=== PATIENT | male | born 1975 | race African-American/Black ===

== ENCOUNTER 2016-08-10 18:05 | Emergency (ER) | payer SELFPAY ==
[~2016-08-10] VITALS: Ht 177.8 cm; Wt 70.0 kg
[~2016-08-10 18:05] MED LIST: ALBU18HF2 IH; PHEN100C4 PO
[2016-08-10 19:35] LABS: BASOPHILS % 0.6 % (0.0-2.0); DIFFERENTIAL COMMENT 0; HEMATOCRIT. 39.6 % (42.0-52.0); HEMOGLOBIN. 12.7 g/dL (14.0-18.0); LYMPHOCYTES % 19.1 % (20.0-50.0); MEAN CORPUSCULAR HGB CONC 32.2 g/dL (31.0-37.0); MEAN CORPUSCULAR VOLUME 77.8 fL (80.0-94.0); MEAN PLATELET VOLUME 7.9 fl (7.4-10.4); MONOCYTES % 7.2 % (2.0-8.0); NEUTROPHILS % 70.1 % (40.0-76.0); PLATELET 320 x1000/uL (130-400); RED BLOOD CELL COUNT 5.09 mill/uL (4.7-6.1); RED CELL DISTRIBUTION WIDTH 17.4 % (11.6-14.6); WHITE BLOOD COUNT 6.6 x1000/uL (4.5-11.0)
[2016-08-10 19:37] LABS: CHLORIDE 99 mEq/L (98-107); INDEX HEMOLYSI 1 (1-3); INDEX ICTERIC 1 (1-4); INDEX LIPEMIC 1 (1-3)
[2016-08-10 19:40] LABS: ANION GAP 14; CALCIUM 9.1 mg/dL (8.5-10.1); CARBON DIOXIDE 28 mEq/L (21-32); UREA NITROGEN BLOOD 7 mg/dL (7-21)
[2016-08-10 19:44] LABS: PHENYTOIN 3.7 ug/mL (10-20); eGFR > 60 mL/min (>60)
[2016-08-10 23:30] VITALS: BP 140/80
[2016-08-10] MEDS ORDERED: PHENYTOIN SODIUM 1,000 MG in SODIUM CHLORIDE 0.9% 100 ML IV ONE (23:45)
== END 2016-08-11 02:51 | disposition home or self-care (01) ==
LOC: ER 18:57
DX: G40.909 Epilepsy, unspecified, not intractable, without status epilepticus (principal); J45.909 Unspecified asthma, uncomplicated; I10 Essential (primary) hypertension; R50.9 Fever, unspecified; Z91.14 Patient's other noncompliance with medication regimen
CPT/HCPCS: 36415; 80048; 80185; 85025; 93005; 96365; 96366; 99285; J1165; J7040; Z7610; J7050

== ENCOUNTER 2017-10-23 00:43 | Emergency (ER) | payer MEDICAID ==
[~2017-10-23] VITALS: Ht 177.8 cm; Wt 82.0 kg
[2017-10-23] MEDS ORDERED: PREDNISONE 20MG TABLET PO STA (01:22)
[2017-10-23] MEDS ORDERED: ALBUTEROL (0.083%) 2.5MG/3ML NEB HHN STA (01:22)
[2017-10-23] MEDS ORDERED: IPRATROPIUM BROMIDE (0.02%) 0.5MG/2.5ML NEB HHN STA (01:22)
[2017-10-23 06:17] VITALS: BP 134/79
== END 2017-10-23 06:18 | disposition home or self-care (01) ==
LOC: ER 00:43
DX: J45.901 Unspecified asthma with (acute) exacerbation (principal); S00.03XA Contusion of scalp, initial encounter; F17.200 Nicotine dependence, unspecified, uncomplicated; F12.10 Cannabis abuse, uncomplicated; G40.909 Epilepsy, unspecified, not intractable, without status epilepticus; W19.XXXA Unspecified fall, initial encounter; Y93.9 Activity, unspecified; Y92.89 Other specified places as the place of occurrence of the external cause
CPT/HCPCS: 70450; 71045; 94640; 99284; J7512; J7611

== ENCOUNTER 2017-12-15 12:00 | Emergency (ER) | payer MEDICAID ==
[~2017-12-15] VITALS: Ht 175.3 cm; Wt 85.0 kg
[2017-12-15] MEDS ORDERED: PHENYTOIN SODIUM EXTENDED 100MG CAPSULE PO ONE (12:30)
[2017-12-15] MEDS ORDERED: NALOXONE HCL 0.4 MG/ML 1ML VIAL IV ONE (14:15)
[2017-12-15] MEDS ORDERED: PHENYTOIN SODIUM 100MG/2ML VIAL IV ONE (14:15)
[2017-12-15] MEDS ORDERED: PHENYTOIN SODIUM 1000MG in SODIUM CHLORIDE 0.9% 100ML IV ONE (14:30)
[2017-12-15 14:56] LABS: BASOPHILS % 0.2 % (0.0-2.0); EOSINOPHILS % 2.2 % (0.0-5.0); HEMATOCRIT. 42.7 % (42.0-52.0); HEMOGLOBIN. 13.9 g/dL (14.0-18.0); LYMPHOCYTES % 19.2 % (20.0-50.0); MEAN CORPUSCULAR HEMOGLOBIN 26.4 pg (28.0-32.0); MEAN CORPUSCULAR VOLUME 81.4 fL (80.0-94.0); MEAN PLATELET VOLUME 8.3 fl (7.4-10.4); MONOCYTES % 9.1 % (2.0-8.0); NEUTROPHILS % 69.3 % (40.0-76.0); PLATELET 240 x1000/uL (130-400); RED BLOOD CELL COUNT 5.24 mill/uL (4.7-6.1); RED CELL DISTRIBUTION WIDTH 14.8 % (11.6-14.6)
[2017-12-15 14:58] LABS: CHLORIDE 107 mEq/L (98-107)
[2017-12-15 15:02] LABS: ETHANOL BLOOD < 10 mg/dL
[2017-12-15 18:26] LABS: *AMPHETAMINES SCREEN URINE NEGATIVE (NEGATIVE); *BARBITURATES SCREEN URINE NEGATIVE (NEGATIVE); CANNABINOID URINE SCREEN PRESUMTIVE POSITIVE (NEGATIVE)
[2017-12-15 18:27] LABS: *BENZODIAZEPINES SCREEN URINE NEGATIVE (NEGATIVE); *COCAINE SCREEN URINE PRESUMTIVE POSITIVE (NEGATIVE); METHADONE URINE SCREEN NEGATIVE (NEGATIVE); OPIATES URINE SCREEN NEGATIVE (NEGATIVE); PHENCYCLIDINE URINE SCREEN PRESUMTIVE POSITIVE (NEGATIVE)
[2017-12-16 00:48] VITALS: BP 155/88
== END 2017-12-16 01:41 | disposition home or self-care (01) ==
LOC: ER 12:00
DX: G40.909 Epilepsy, unspecified, not intractable, without status epilepticus (principal); J45.909 Unspecified asthma, uncomplicated; F12.10 Cannabis abuse, uncomplicated
CPT/HCPCS: 36415; 80053; 80185; 80305; 82962; 85025; 96365; 96366; 96375; 99285; G0482; J1165; J2310; X7700; J7050

== ENCOUNTER 2019-02-27 23:56 | Emergency (ER) | payer MEDICAID ==
[~2019-02-27] VITALS: Ht 177.8 cm; Wt 87.0 kg
[2019-02-28] MEDS ORDERED: LIDOCAINE HCL/PF 1% 10 MG/ML 5ML VIAL IJ ONE (04:30)
[2019-02-28] MEDS ORDERED: BACITRACIN ZINC OINT UDPKT TOP ONE (04:30)
[2019-02-28] MEDS ORDERED: BACITRACIN 15GM TUBE TOP NR (05:15)
[2019-02-28] MEDS ORDERED: CEFTRIAXONE SODIUM 1 G/VIAL IM NR (06:00)
[2019-02-28] MEDS ORDERED: LIDOCAINE HCL 1% 20ML VIAL (Pyxis) INJ INFIL NR (06:00)
[2019-02-28 06:25] VITALS: BP 142/62
== END 2019-02-28 07:00 | disposition home or self-care (01) ==
LOC: ER 23:56
DX: S91.351A Open bite, right foot, initial encounter (principal); J45.909 Unspecified asthma, uncomplicated; F12.10 Cannabis abuse, uncomplicated; Z79.899 Other long term (current) drug therapy; W54.0XXA Bitten by dog, initial encounter; Y93.89 Activity, other specified; Y92.89 Other specified places as the place of occurrence of the external cause; Y99.8 Other external cause status
CPT/HCPCS: 73620; 96372; 99283; A4217; J0696; J3490; Z7610

== ENCOUNTER 2019-09-19 23:37 | Emergency (ER) | payer MEDICAID ==
[~2019-09-19] VITALS: Ht 185.4 cm; Wt 100.0 kg
[2019-09-20] MEDS ORDERED: KETOROLAC 60MG/2ML VIAL IM ONE (00:15)
[2019-09-20] MEDS ORDERED: SODIUM CHLORIDE 0.9% 1,000 ML IV ONE (00:16)
[2019-09-20] MEDS ORDERED: ONDANSETRON HCL 4MG/2ML INJ IV STA (00:16)
[2019-09-20] MEDS ORDERED: LEVETIRACETAM 500MG PREMIX 100 ML IV ONE (00:30)
[2019-09-20] MEDS ORDERED: NALOXONE HCL 1 MG/ML 2ML VIAL IV ONE (00:30)
[2019-09-20 00:42] LABS: CHLORIDE 108 mEq/L (98-107)
[2019-09-20 00:43] LABS: BASOPHILS % 0.3 % (0.0-2.0); EOSINOPHILS % 1.4 % (0.0-5.0); HEMATOCRIT. 37.2 % (42.0-52.0); HEMOGLOBIN. 12.2 g/dL (14.0-18.0); LYMPHOCYTES % 23.5 % (20.0-50.0); MEAN CORPUSCULAR HEMOGLOBIN 26.9 pg (28.0-32.0); MEAN CORPUSCULAR VOLUME 81.8 fL (80.0-94.0); MEAN PLATELET VOLUME 8.1 fl (7.4-10.4); MONOCYTES % 4.4 % (2.0-8.0); NEUTROPHILS % 70.4 % (40.0-76.0); PLATELET 259 x1000/uL (130-400); RED BLOOD CELL COUNT 4.54 mill/uL (4.7-6.1); RED CELL DISTRIBUTION WIDTH 13.9 % (11.6-14.6)
[2019-09-20 00:47] LABS: ETHANOL BLOOD < 10 mg/dL
[2019-09-20 01:48] LABS: *AMPHETAMINES SCREEN URINE NEGATIVE (NEGATIVE); *BARBITURATES SCREEN URINE NEGATIVE (NEGATIVE); *BENZODIAZEPINES SCREEN URINE NEGATIVE (NEGATIVE); *COCAINE SCREEN URINE PRESUMTIVE POSITIVE (NEGATIVE)
[2019-09-20 01:50] LABS: CANNABINOID URINE SCREEN PRESUMTIVE POSITIVE (NEGATIVE); METHADONE URINE SCREEN NEGATIVE (NEGATIVE); OPIATES URINE SCREEN NEGATIVE (NEGATIVE); PHENCYCLIDINE URINE SCREEN PRESUMTIVE POSITIVE (NEGATIVE)
[2019-09-20] MEDS ORDERED: PIPERACILLIN/TAZ 3.375G PREMIX 50 ML IV ONE (10:00)
[2019-09-20] MEDS ORDERED: IPRATROPIUM/ALBUTEROL 0.5-3(2.5)MG/3ML NEB HHN PRN (10:15)
[2019-09-20] MEDS ORDERED: ACETAMINOPHEN 325MG TABLET PO PRN (10:15)
[2019-09-20] MEDS ORDERED: LORAZEPAM 2MG/ML CPJ IV PRN (10:15)
[2019-09-20] MEDS ORDERED: ONDANSETRON HCL 4MG/2ML INJ IV PRN (10:15)
[2019-09-20] MEDS ORDERED: LEVETIRACETAM 500MG PREMIX 100 ML IV SCH (11:00)
[2019-09-20 11:04] LABS: BG BASE EXCESS -3.3 mmol/L (-2.0-2.0); BG DEOXYHEMOGLOBIN 2.8 % (0.0-5.0); BG FRACTION INSPIRED OXYGEN 21; BG HCO3 ACT 21.5 mmol/L (22.0-26.0); BG METHEMOGLOBIN 0.2 % (0.0-1.5); BG OXYGEN SATURATION 97.1 % (92.0-98.5); BG PCO2 37.9 mmHg (35.0-45.0); BG PH 7.372 (7.350-7.450); BG PO2 91.3 mmHg (75.0-100.0); BG SAMPLE SITE RIGHT RADIAL; BG TOTAL HEMOGLOBIN 13.1 g/dL (12.0-18.0); BG VENT MODE ROOM AIR
[2019-09-20 11:06] LABS: FOLIC ACID (FOLATE) SERUM >20 ng/mL ng/mL (>5.38)
[2019-09-20 11:07] LABS: FERRITIN 100 ng/mL (22-322)
[2019-09-20 11:18] LABS: VITAMIN B12 SERUM 455 pg/mL (211-911)
[2019-09-20 11:30] LABS: CLARITY URINE CLEAR (CLEAR); COLOR URINE YELLOW (YELLOW); KETONES URINE TRACE (NEGATIVE); LEUKOCYTE ESTERASE URINE TRACE (NEGATIVE); NITRITE URINE NEGATIVE (NEGATIVE); OCCULT BLOOD URINE TRACE (NEGATIVE); PROTEIN URINE NEGATIVE (NEGATIVE); SPECIFIC GRAVITY URINE 1.029 (1.005-1.030)
[2019-09-20] MEDS ORDERED: HALOPERIDOL LACTATE 5MG/ML VIAL IM ONE (11:30)
[2019-09-20 12:00] VITALS: BP 129/70
[2019-09-20] MEDS ORDERED: PIPERACILLIN/TAZOBACTAM 3.375 G/VIAL IV SCH (14:00)
== END 2019-09-20 12:04 | disposition left against medical advice (07) ==
LOC: ER 23:37 → EDBEDREQ 09-20 05:03 → ER 09-20 12:04 → CANBEDREQ 09-20 12:29
DX: T40.5X1A Poisoning by cocaine, accidental (unintentional), initial encounter (principal); T40.7X1A Poisoning by cannabis (derivatives), accidental (unintentional), initial encounter; G92 Toxic encephalopathy; J69.0 Pneumonitis due to inhalation of food and vomit; G40.909 Epilepsy, unspecified, not intractable, without status epilepticus; J45.909 Unspecified asthma, uncomplicated; F12.10 Cannabis abuse, uncomplicated; D64.9 Anemia, unspecified; J32.0 Chronic maxillary sinusitis; Z86.73 Personal history of transient ischemic attack (TIA), and cerebral infarction without residual deficits; Y92.018 Other place in single-family (private) house as the place of occurrence of the external cause
CPT/HCPCS: 36415; 36600; 70450; 71045; 80053; 80061; 80185; 80305; 80320; 81003; 82140; 82375; 82607; 82728; 82746; 82805; 82962; 83036; 83540; 83550; 83605; 84443; 84484; 85025; 87040; 93005; 96365; 96366; 96367; 96372; 96375; 99285; J1630; J1953; J2310; J2405; J2543; J7030; G0480

== ENCOUNTER 2020-02-25 01:12 | Emergency (ER) | payer MEDICAID ==
[~2020-02-25] VITALS: Ht 175.3 cm; Wt 105.0 kg
[2020-02-25] MEDS ORDERED: IPRATROPIUM BROMIDE (0.02%) 0.5MG/2.5ML NEB HHN ONE (02:15)
[2020-02-25] MEDS ORDERED: DEXAMETHASONE 4MG TABLET PO ONE (02:15)
[2020-02-25] MEDS ORDERED: ALBUTEROL (0.083%) 2.5MG/3ML NEB HHN ONE (02:15)
[2020-02-25] MEDS ORDERED: TRAMADOL 50MG TABLET PO ONE (03:15)
[2020-02-25] MEDS ORDERED: CEFTRIAXONE SODIUM 1 G/VIAL IM ONE (03:45)
[2020-02-25] MEDS ORDERED: LIDOCAINE HCL 1% 20ML VIAL (Pyxis) INJ INFIL ONE (03:45)
[2020-02-25 06:20] VITALS: BP 145/80
== END 2020-02-25 07:02 | disposition home or self-care (01) ==
LOC: ER 01:12
DX: J45.909 Unspecified asthma, uncomplicated (principal); I10 Essential (primary) hypertension; F17.290 Nicotine dependence, other tobacco product, uncomplicated; F12.10 Cannabis abuse, uncomplicated
CPT/HCPCS: 93005; 94640; 96372; 99283; J0696; J3490; J8540; Z7610

== ENCOUNTER 2021-01-27 09:41 | Inpatient (IN) | payer MEDICAID ==
[~2021-01-27] VITALS: Ht 170.2 cm; Wt 82.4 kg
[2021-01-27 11:55] LABS: BASOPHILS % 0.7 % (0.0-2.0); EOSINOPHILS % 1.8 % (0.0-5.0); HEMATOCRIT. 42.6 % (42.0-52.0); LYMPHOCYTES % 12.8 % (20.0-50.0); MEAN CORPUSCULAR HEMOGLOBIN 26.6 pg (28.0-32.0); MEAN CORPUSCULAR VOLUME 80.5 fL (80.0-94.0); MEAN PLATELET VOLUME 7.3 fl (7.4-10.4); MONOCYTES % 5.8 % (2.0-8.0); NEUTROPHILS % 78.9 % (40.0-76.0); PLATELET 267 x1000/uL (130-400); RED BLOOD CELL COUNT 5.29 mill/uL (4.7-6.1); RED CELL DISTRIBUTION WIDTH 14.5 % (11.6-14.6)
[2021-01-27 12:02] LABS: CHLORIDE 104 mEq/L (98-107)
[2021-01-27] MEDS ORDERED: ONDANSETRON HCL 4MG/2ML INJ IV ONE (13:00)
[2021-01-27] MEDS ORDERED: PROPOFOL 200MG/20ML VIAL IV ONE (13:00)
[2021-01-27 16:00] VITALS: BP 158/91
[2021-01-27 16:39] LABS: *AMPHETAMINES SCREEN URINE PRESUMTIVE POSITIVE (NEGATIVE); *BARBITURATES SCREEN URINE NEGATIVE (NEGATIVE); *BENZODIAZEPINES SCREEN URINE NEGATIVE (NEGATIVE); *COCAINE SCREEN URINE PRESUMTIVE POSITIVE (NEGATIVE)
[2021-01-27 16:40] LABS: CANNABINOID URINE SCREEN PRESUMTIVE POSITIVE (NEGATIVE); METHADONE URINE SCREEN NEGATIVE (NEGATIVE); OPIATES URINE SCREEN NEGATIVE (NEGATIVE); PHENCYCLIDINE URINE SCREEN PRESUMTIVE POSITIVE (NEGATIVE)
[2021-01-27] MEDS ORDERED: IPRATROPIUM/ALBUTEROL 0.5-3(2.5)MG/3ML NEB HHN PRN (17:15)
[2021-01-27] MEDS ORDERED: ACETAMINOPHEN 325MG TABLET PO PRN (17:15)
[2021-01-27] MEDS ORDERED: LORAZEPAM 0.5MG TABLET PO PRN (17:15)
[2021-01-27] MEDS ORDERED: ONDANSETRON HCL 4MG/2ML INJ IV PRN (17:15)
[2021-01-27] MEDS ORDERED: DOCUSATE SODIUM 100MG CAPSULE PO PRN (17:15)
[2021-01-27] MEDS ORDERED: ENOXAPARIN 40MG/0.4ML SYR SUBCUT SCH (17:30)
[2021-01-27 18:20] VITALS: BP 158/91
[2021-01-27 19:56] LABS: PROTHROMBIN TIME 10.9 sec (9.6-11.0)
[2021-01-27 20:00] VITALS: BP 156/74
[2021-01-27] MEDS: HYDROCODONE/ACETAMINOPHEN 5/325MG TABLET PO PRN (23:35)
[2021-01-28] VITALS: BP 152/79
[2021-01-28 04:00] VITALS: BP 170/86
[2021-01-28 05:51] LABS: BASOPHILS % 0.6 % (0.0-2.0); EOSINOPHILS % 3.4 % (0.0-5.0); HEMATOCRIT. 43.6 % (42.0-52.0); HEMOGLOBIN. 14.2 g/dL (14.0-18.0); LYMPHOCYTES % 23.8 % (20.0-50.0); MEAN CORPUSCULAR HEMOGLOBIN 26.5 pg (28.0-32.0); MEAN CORPUSCULAR VOLUME 81.3 fL (80.0-94.0); MEAN PLATELET VOLUME 8.1 fl (7.4-10.4); MONOCYTES % 7.2 % (2.0-8.0); PLATELET 290 x1000/uL (130-400); RED BLOOD CELL COUNT 5.37 mill/uL (4.7-6.1); RED CELL DISTRIBUTION WIDTH 14.4 % (11.6-14.6)
[2021-01-28 06:04] LABS: CHLORIDE 104 mEq/L (98-107)
[2021-01-28] MEDS ORDERED: POLYMYXIN B SULFATE 500000 UNITS/VIAL ONE ×2 (06:50→09:06)
[2021-01-28] MEDS ORDERED: LIDOCAINE HCL 1% 20ML VIAL (Pyxis) INJ ONE (06:50)
[2021-01-28] MEDS ORDERED: VANCOMYCIN HCL 1 GM/VIAL ONE (06:50)
[2021-01-28] MEDS ORDERED: ROPIVACAINE HCL 10MG/ML 20 ML VIAL EPI ONE (06:51)
[2021-01-28] MEDS ORDERED: FENTANYL CITRATE/PF 50MCG/ML 2ML VIAL ONE ×2 (07:46→09:24)
[2021-01-28] MEDS ORDERED: PROPOFOL 200MG/20ML VIAL IV ONE (07:46)
[2021-01-28] MEDS ORDERED: MIDAZOLAM HCL 2 MG/2 ML VIAL ONE (07:47)
[2021-01-28] MEDS ORDERED: DEXAMETHASONE 4MG/ML 1ML VIAL ONE (07:59)
[2021-01-28] MEDS ORDERED: ONDANSETRON HCL 4MG/2ML INJ ONE (07:59)
[2021-01-28] MEDS ORDERED: ONDANSETRON HCL 4MG/2ML INJ IV PRN (08:30)
[2021-01-28] MEDS ORDERED: HYDROMORPHONE HCL/PF 2MG/ML CPJ IV PRN (08:30)
[2021-01-28] MEDS ORDERED: LABETALOL 5MG/ML SYR 20 MG/4 ML SYRINGE IV PRN (08:30)
[2021-01-28] MEDS ORDERED: MEPERIDINE HCL/PF 25MG/ML CPJ IV PRN (08:30)
[2021-01-28] MEDS ORDERED: NALOXONE HCL 0.4MG/ML VIAL IV PRN (09:15)
[2021-01-28] MEDS ORDERED: LORAZEPAM 2MG/ML CPJ IV PRN (12:15)
[2021-01-28 12:29] VITALS: BP 160/102
[2021-01-28] MEDS: PHENYTOIN SODIUM EXTENDED 100MG CAPSULE PO SCH (12:43)
[2021-01-28] MEDS: CLONIDINE 0.1MG TABLET PO PRN (12:43)
[2021-01-28] MEDS: CEFAZOLIN 1000MG PREMIX 50 ML IV SCH ×2 (13:03→21:05)
[2021-01-28 13:08] LABS: HEPATITIS B SURFACE ANTIGEN NEGATIVE
[2021-01-28] MEDS ORDERED: CEFAZOLIN SODIUM 1000MG/VIAL IV SCH (14:00)
[2021-01-28 16:00] VITALS: BP 156/78
[2021-01-28 20:00] VITALS: BP 150/85
[2021-01-28] MEDS: HYDROCODONE/ACETAMINOPHEN 5/325MG TABLET PO PRN (21:15)
[2021-01-29] VITALS: BP 144/68
[2021-01-29] MEDS: HYDROCODONE/ACETAMINOPHEN 5/325MG TABLET PO PRN ×3 (01:58→16:38)
[2021-01-29 04:00] VITALS: BP 168/79
[2021-01-29] MEDS: CLONIDINE 0.1MG TABLET PO PRN (04:09)
[2021-01-29] MEDS: MORPHINE SULFATE 2 MG/ML CPJ (NOT FOR IM USE) IV PRN ×3 (04:51→20:19)
[2021-01-29] MEDS: CEFAZOLIN 1000MG PREMIX 50 ML IV SCH ×2 (05:08→16:43)
[2021-01-29 08:00] VITALS: BP 168/94
[2021-01-29] MEDS: PHENYTOIN SODIUM EXTENDED 100MG CAPSULE PO SCH (08:41)
[2021-01-29 12:00] VITALS: BP 158/80
[2021-01-29 16:00] VITALS: BP 147/90
[2021-01-29 20:00] VITALS: BP 152/94
[2021-01-30] VITALS: BP 153/90
[2021-01-30] MEDS: HYDROCODONE/ACETAMINOPHEN 5/325MG TABLET PO PRN ×4 (02:21→23:49)
[2021-01-30 04:00] VITALS: BP 136/78
[2021-01-30 07:34] LABS: BASOPHILS % 0.6 % (0.0-2.0); HEMATOCRIT. 43.5 % (42.0-52.0); HEMOGLOBIN. 14.1 g/dL (14.0-18.0); LYMPHOCYTES % 25.9 % (20.0-50.0); MEAN CORPUSCULAR HEMOGLOBIN 26.7 pg (28.0-32.0); MEAN CORPUSCULAR VOLUME 82.3 fL (80.0-94.0); MEAN PLATELET VOLUME 7.9 fl (7.4-10.4); MONOCYTES % 9.7 % (2.0-8.0); NEUTROPHILS % 59.8 % (40.0-76.0); PLATELET 284 x1000/uL (130-400); RED BLOOD CELL COUNT 5.29 mill/uL (4.7-6.1); RED CELL DISTRIBUTION WIDTH 14.5 % (11.6-14.6)
[2021-01-30 07:41] VITALS: BP 135/81
[2021-01-30] MEDS: PHENYTOIN SODIUM EXTENDED 100MG CAPSULE PO SCH (08:02)
[2021-01-30 08:03] LABS: CHLORIDE 101 mEq/L (98-107)
[2021-01-30] MEDS: MORPHINE SULFATE 2 MG/ML CPJ (NOT FOR IM USE) IV PRN ×2 (08:03→14:17)
[2021-01-30 11:50] VITALS: BP 121/81
[2021-01-30 15:56] VITALS: BP 146/88
[2021-01-30 20:00] VITALS: BP 121/74
[2021-01-31] VITALS: BP 128/66
[2021-01-31 04:00] VITALS: BP 124/68
[2021-01-31 08:00] VITALS: BP 128/87
[2021-01-31] MEDS: PHENYTOIN SODIUM EXTENDED 100MG CAPSULE PO SCH (08:57)
[2021-01-31] MEDS: HYDROCODONE/ACETAMINOPHEN 5/325MG TABLET PO PRN ×2 (08:57→14:49)
[2021-01-31 12:00] VITALS: BP 126/84
[2021-01-31 16:00] VITALS: BP 132/84
[2021-01-31 20:00] VITALS: BP 118/86
[2021-02-01] VITALS (7 sets, daily range): BP systolic 111–151; BP diastolic 63–83
[2021-02-01] MEDS: HYDROCODONE/ACETAMINOPHEN 5/325MG TABLET PO PRN ×3 (00:16→15:09)
[2021-02-01 06:24] LABS: BASOPHILS % 1.1 % (0.0-2.0); EOSINOPHILS % 5.1 % (0.0-5.0); HEMATOCRIT. 42.9 % (42.0-52.0); MEAN CORPUSCULAR HEMOGLOBIN 26.7 pg (28.0-32.0); MEAN CORPUSCULAR VOLUME 81.7 fL (80.0-94.0); MEAN PLATELET VOLUME 7.8 fl (7.4-10.4); MONOCYTES % 10.1 % (2.0-8.0); NEUTROPHILS % 54.7 % (40.0-76.0); PLATELET 339 x1000/uL (130-400); RED BLOOD CELL COUNT 5.25 mill/uL (4.7-6.1); RED CELL DISTRIBUTION WIDTH 14.5 % (11.6-14.6)
[2021-02-01 07:09] LABS: CHLORIDE 100 mEq/L (98-107)
[2021-02-01] MEDS: PHENYTOIN SODIUM EXTENDED 100MG CAPSULE PO SCH (09:24)
[2021-02-02 04:00] VITALS: BP 141/88
[2021-02-02] MEDS: ACETAMINOPHEN 325MG TABLET PO PRN ×2 (05:11→17:36)
[2021-02-02 08:00] VITALS: BP 152/85
[2021-02-02] MEDS: PHENYTOIN SODIUM EXTENDED 100MG CAPSULE PO SCH (09:35)
[2021-02-02 12:00] VITALS: BP 155/87
[2021-02-02 16:00] VITALS: BP 133/76
[2021-02-02] MEDS: HYDROCODONE/ACETAMINOPHEN 5/325MG TABLET PO PRN (18:41)
[2021-02-03] VITALS: BP 118/62
[2021-02-03] MEDS: HYDROCODONE/ACETAMINOPHEN 5/325MG TABLET PO PRN ×2 (01:23→17:03)
[2021-02-03 04:00] VITALS: BP 125/62
[2021-02-03 08:00] VITALS: BP 129/78
[2021-02-03] MEDS: PHENYTOIN SODIUM EXTENDED 100MG CAPSULE PO SCH (10:07)
[2021-02-03] MEDS: HYDROCODONE/ACETAMINOPHEN 10/325MG TABLET PO PRN ×2 (10:08→22:41)
[2021-02-03 12:00] VITALS: BP 112/71
[2021-02-03 15:55] VITALS: BP 130/77
[2021-02-03 20:00] VITALS: BP 145/61
[2021-02-04] VITALS: BP 126/64
[2021-02-04 04:00] VITALS: BP 141/89
[2021-02-04] MEDS: HYDROCODONE/ACETAMINOPHEN 10/325MG TABLET PO PRN ×3 (04:27→17:46)
[2021-02-04 08:00] VITALS: BP 142/72
[2021-02-04] MEDS: PHENYTOIN SODIUM EXTENDED 100MG CAPSULE PO SCH (09:23)
[2021-02-04 12:00] VITALS: BP 136/79
[2021-02-04 16:00] VITALS: BP 137/82
[2021-02-04 20:00] VITALS: BP_SYST 103; BP_SYST 145; BP_DIAS 59; BP_DIAS 70
[2021-02-05] VITALS: BP 140/65
[2021-02-05] MEDS: HYDROCODONE/ACETAMINOPHEN 10/325MG TABLET PO PRN ×3 (00:38→16:52)
[2021-02-05 04:00] VITALS: BP 148/74
[2021-02-05] MEDS: PHENYTOIN SODIUM EXTENDED 100MG CAPSULE PO SCH (09:49)
[2021-02-05] MEDS: CLONIDINE 0.1MG TABLET PO PRN (16:51)
[2021-02-05 17:23] VITALS: BP_SYST 148; BP_SYST 159; BP_DIAS 78; BP_DIAS 93
== END 2021-02-05 19:48 | DRG 313 ==
LOC: ER 09:52 → 7EST 14:07 → EDBEDREQ 14:17 → EDBEDREQSVC 14:17 → EDBEDREQTM 14:17 → ENRESERV 14:20 → 6EST 02-02 17:26
PROVIDERS: ADMIT Internal Medicine; ATTEND Internal Medicine
PROC: 0QSJ04Z Reposition Right Fibula with Internal Fixation Device, Open Approach (ICD-10-PCS; principal; 2021-01-28)
PROC: 0QSG04Z Reposition Right Tibia with Internal Fixation Device, Open Approach (ICD-10-PCS; 2021-01-28)
DX: S82.841A Displaced bimalleolar fracture of right lower leg, initial encounter for closed fracture (principal); E88.09 Other disorders of plasma-protein metabolism, not elsewhere classified; G40.909 Epilepsy, unspecified, not intractable, without status epilepticus; I10 Essential (primary) hypertension; J45.909 Unspecified asthma, uncomplicated; Z20.822 Contact with and (suspected) exposure to COVID-19; F19.10 Other psychoactive substance abuse, uncomplicated; V18.4XXA Pedal cycle driver injured in noncollision transport accident in traffic accident, initial encounter; Y93.55 Activity, bike riding; Z82.49 Family history of ischemic heart disease and other diseases of the circulatory system; Z91.19 Patient's noncompliance with other medical treatment and regimen; Z79.899 Other long term (current) drug therapy; Y92.89 Other specified places as the place of occurrence of the external cause; Y99.8 Other external cause status; Z71.51 Drug abuse counseling and surveillance of drug abuser
CPT/HCPCS: 36415; 71045; 73590; 73610; 76000; 80048; 80053; 80305; 80320; 82140; 82962; 85025; 86703; 86705; 86709; 86803; 87340; 87426; 93005; 93306; 97162; 97530; 97535; 99285; J0690; J1100; J1650; J2250; J2270; J2405; J2704; J2795; J3010; J3370; J3490; J7040; G0480

== ENCOUNTER 2023-07-15 09:51 | Emergency (ER) | payer MEDICAID ==
[~2023-07-15] VITALS: Ht 177.8 cm; Wt 91.0 kg
[2023-07-15 11:18] LABS: BASOPHILS % 0.7 % (0.0-2.0); HEMOGLOBIN. 13.9 g/dL (14.0-18.0); LYMPHOCYTES % 20.5 % (20.0-50.0); MEAN CORPUSCULAR HEMOGLOBIN 26.5 pg (28.0-32.0); MEAN CORPUSCULAR HGB CONC 31.6 g/dL (31.0-37.0); MEAN CORPUSCULAR VOLUME 83.8 fL (80.0-94.0); MEAN PLATELET VOLUME 7.6 fl (7.4-10.4); MONOCYTES % 8.2 % (2.0-8.0); NEUTROPHILS % 64.6 % (40.0-76.0); PLATELET 268 x1000/uL (130-400); RED BLOOD CELL COUNT 5.25 mill/uL (4.7-6.1); RED CELL DISTRIBUTION WIDTH 14.5 % (11.6-14.6)
[2023-07-15 11:32] LABS: ALANINE AMINOTRANSFERASE 19 IU/L (10-49); ALBUMIN 4.4 g/dL (3.2-4.8); ASPARTATE AMINOTRANSFERASE 21 IU/L (<34); BILIRUBIN TOTAL 0.3 mg/dL (0.1-1.0); CALCIUM 8.7 mg/dL (8.7-10.4); CARBON DIOXIDE 29 mEq/L (21-32); CHLORIDE 104 mEq/L (98-107); GLUCOSE 67 mg/dL (70-105); POTASSIUM 4.1 mEq/L (3.5-5.1); PROTEIN TOTAL 7.5 g/dL (6.0-8.3); SODIUM 137 mEq/L (136-145); UREA NITROGEN BLOOD 14 mg/dL (9-23)
[2023-07-15] MEDS: METHYLPREDNISOLONE SOD SUCC 40MG VIAL IV ONE (11:36)
[2023-07-15] MEDS: METHYLPREDNISOLONE SOD SUCC 125MG/2ML (ACT-O-VIAL) IV NR (11:37)
[2023-07-15 12:05] LABS: TROPONIN I HIGH SENSITIVITY 4 ng/L (3.0-53)
[2023-07-15] MEDS ORDERED: TOPUD MT (12:23)
[2023-07-15] MEDS ORDERED: P50 MT (12:23)
[2023-07-15] MEDS ORDERED: ALBU90AE INH (12:23)
[2023-07-15] MEDS ORDERED: IBUP-1525 MT (12:23)
[2023-07-15 12:57] VITALS: PULSE 67; RESP 20; O2SAT 97
[2023-07-15] MEDS: IPRATROPIUM/ALBUTEROL 0.5-3(2.5)MG/3ML NEB HHN ONE (12:57)
[2023-07-15 13:42] VITALS: BP 158/86; PULSE 68; RESP 15; TEMP 97.9
== END 2023-07-15 14:02 | disposition home or self-care (01) ==
LOC: ER 09:51
DX: J45.901 Unspecified asthma with (acute) exacerbation (principal); R51.9 Headache, unspecified; F19.10 Other psychoactive substance abuse, uncomplicated; I10 Essential (primary) hypertension; Z86.59 Personal history of other mental and behavioral disorders
CPT/HCPCS: 80053; 83880; 85025; 84484; 36415; 71045; 94640; 93005; 96374; 99285; J2930; Z7610 ×6; J2920